=== PATIENT | male | born 1960 | race Two or more races ===

== ENCOUNTER 2019-03-08 09:59 | Emergency (ER) | payer OTHER ==
[~2019-03-08] VITALS: Ht 175.3 cm; Wt 67.1 kg
[2019-03-08] MEDS ORDERED: KETOROLAC TROME10 MG PO (13:00)
[2019-03-08] MEDS ORDERED: NORFLEX100MG PO (13:00)
== END 2019-03-08 13:36 | disposition home or self-care (01) ==
LOC: ER 09:59
DX: S20.212A Contusion of left front wall of thorax, initial encounter (principal); S20.211A Contusion of right front wall of thorax, initial encounter; W22.8XXA Striking against or struck by other objects, initial encounter; Y93.89 Activity, other specified; Y92.39 Other specified sports and athletic area as the place of occurrence of the external cause; Y99.8 Other external cause status

== ENCOUNTER 2019-03-30 11:09 | Emergency (ER) | payer OTHER ==
[~2019-03-30] VITALS: Ht 175.3 cm; Wt 66.7 kg
[~2019-03-30 11:09] MED LIST: KETOROLAC TROME10 MG PO; NORFLEX100MG PO
== END 2019-03-30 17:51 | disposition home or self-care (01) ==
LOC: ER 11:09
DX: N20.0 Calculus of kidney (principal)

== ENCOUNTER 2019-07-15 05:44 | Emergency (ER) | payer OTHER ==
[~2019-07-15] VITALS: Ht 175.3 cm; Wt 67.1 kg
== END 2019-07-15 14:02 | disposition home or self-care (01) ==
LOC: ER 05:44
DX: N39.0 Urinary tract infection, site not specified (principal); R10.84 Generalized abdominal pain

== ENCOUNTER → 2024-10-11 | Emergency (ER) | payer OTHER ==
[~2024-10-11] VITALS: Ht 152.4 cm; Wt 65.8 kg
== END | disposition left against medical advice (07) ==
LOC: ER 01:07
DX: Z53.21 Procedure and treatment not carried out due to patient leaving prior to being seen by health care provider (principal)